=== PATIENT | male | born 1980 | race African-American/Black ===

== ENCOUNTER 2019-03-24 12:49 | Inpatient (IN) ==
[2019-03-24] MEDS ORDERED: ONDANSETRON 4 MG/2 ML VIAL IV PRN (15:00)
[2019-03-24] MEDS ORDERED: ACETAMINOPHEN 325 MG TABLET PO PRN (15:00)
[2019-03-24] MEDS ORDERED: GLUCAGON 1 MG VIAL IM PRN (15:00)
[2019-03-24] MEDS ORDERED: DEXTROSE 10% 250 ML BAG IV PRN (15:00)
[2019-03-24] MEDS ORDERED: DICYCLOMINE 10 MG CAPSULE PO PRN (15:01)
[2019-03-24] MEDS ORDERED: METHOCARBAMOL 750 MG TABLET PO PRN (15:01)
[2019-03-24] MEDS ORDERED: LORazepam 2 MG/1 ML VIAL IV PRN (15:01)
[2019-03-24] MEDS ORDERED: HydrOXYzine PAMOATE 25 MG CAPSULE PO PRN (15:01)
[2019-03-24 15:29] LABS: Basophils # 0.1 10*3/uL (0.0-0.2); Basophils % 1.5 % (0.0-0.8); Eosinophils # 0.2 10*3/uL (0.0-0.87); Eosinophils % 4.5 % (0.00-10.9); Hematocrit 39.9 VOL% (42.0-52.0); Hemoglobin 13.9 GM/DL (14.0-18.0); Immature Granulocytes % 0.2 %; Immature Granulocytes Absolute 0.01 #; Lymphocytes # 1.7 10*3/uL (1.4-4.0); Lymphocytes % 36.9 % (21.2-54.2); Mean Corpuscular HGB Conc 34.8 GM/DL (32-36); Mean Corpuscular Volume 90.7 FL (87-102); Mean Platelet Volume 9.9 FL (9.6-12.0); Monocytes % 11.7 % (1.7-12.7); Neutrophils % 45.2 % (38.7-73.9); Platelet Count 222 T/CUMM (130-400); White Blood Count 4.7 T/CUMM (4-12)
[2019-03-24 15:46] LABS: Osmolality,Calculated 265.1 MOS/KG (273-304)
[2019-03-24] MEDS: chlordiazePOXIDE 25 MG CAPSULE PO SCH ×2 (16:43→21:27)
[2019-03-24] MEDS: INSULIN LISPRO 100 UNIT/ML SUBCUT SCH ×2 (16:44→21:26)
[2019-03-24] MEDS ORDERED: THIAMINE INJ 100 MG, FOLIC ACID INJ 1 MG, MULTIVITAMIN INJ 10 ML in SODIUM CHLORIDE 0.9... IV ONE (17:00)
[2019-03-25 04:19] LABS: Basophils # 0.1 10*3/uL (0.0-0.2); Basophils % 1.1 % (0.0-0.8); Eosinophils # 0.3 10*3/uL (0.0-0.87); Eosinophils % 6.2 % (0.00-10.9); Hematocrit 41.6 VOL% (42.0-52.0); Immature Granulocytes % 0.2 %; Immature Granulocytes Absolute 0.01 #; Lymphocytes # 1.8 10*3/uL (1.4-4.0); Lymphocytes % 37.5 % (21.2-54.2); Mean Corpuscular HGB Conc 33.7 GM/DL (32-36); Mean Corpuscular Volume 91.6 FL (87-102); Mean Platelet Volume 10.6 FL (9.6-12.0); Monocytes % 11.1 % (1.7-12.7); Neutrophils % 43.9 % (38.7-73.9); Platelet Count 216 T/CUMM (130-400); Red Blood Count 4.54 MC/CUMM (3.8-5.5); Red Cell Distribution Width 14.8 % (9.3-17.3); White Blood Count 4.7 T/CUMM (4-12)
[2019-03-25 04:55] LABS: Calcium 8.6 MG/DL (8.5-10.1); Risk Ratio 4.2; Thyroid Stimulating Hormone 0.948 uIU/ml (0.358-3.74)
[2019-03-25] MEDS: chlordiazePOXIDE 25 MG CAPSULE PO SCH ×3 (04:59→15:40)
[2019-03-25] MEDS: INSULIN LISPRO 100 UNIT/ML SUBCUT SCH ×4 (07:20→21:17)
[2019-03-25] MEDS: PANTOPRAZOLE 40 MG TABLET PO SCH (09:15)
[2019-03-25 20:16] LABS: Barbiturates Screen,Urine Negative (Negative); Benzodiazepines Screen,Urine Positive (Negative); Cannabinoid Screen,Urine Negative (Negative); Opiate Screen,Urine Negative (Negative); Phencyclidine Screen,Urine Negative (Negative)
[2019-03-26] MEDS: chlordiazePOXIDE 25 MG CAPSULE PO SCH ×4 (00:52→23:33)
[2019-03-26 06:56] LABS: Basophils % 0.6 % (0.0-0.8); Eosinophils # 0.3 10*3/uL (0.0-0.87); Eosinophils % 5.3 % (0.00-10.9); Hematocrit 42.4 VOL% (42.0-52.0); Hemoglobin 14.1 GM/DL (14.0-18.0); Immature Granulocytes % 0.8 %; Immature Granulocytes Absolute 0.04 #; Lymphocytes # 1.4 10*3/uL (1.4-4.0); Lymphocytes % 26.1 % (21.2-54.2); Mean Corpuscular HGB Conc 33.3 GM/DL (32-36); Mean Platelet Volume 10.9 FL (9.6-12.0); Neutrophils % 57.2 % (38.7-73.9); Platelet Count 196 T/CUMM (130-400); Red Blood Count 4.56 MC/CUMM (3.8-5.5); Red Cell Distribution Width 14.6 % (9.3-17.3); White Blood Count 5.3 T/CUMM (4-12)
[2019-03-26 07:20] LABS: Calcium 8.9 MG/DL (8.5-10.1); Osmolality,Calculated 288.7 MOS/KG (273-304)
[2019-03-26] MEDS: PANTOPRAZOLE 40 MG TABLET PO SCH (09:12)
[2019-03-26] MEDS: INSULIN LISPRO 100 UNIT/ML SUBCUT SCH ×4 (09:48→21:25)
[2019-03-27 08:20] VITALS: BP 110/79
[2019-03-27] MEDS: chlordiazePOXIDE 25 MG CAPSULE PO SCH (08:41)
[2019-03-27] MEDS: INSULIN LISPRO 100 UNIT/ML SUBCUT SCH ×2 (08:41→10:56)
[2019-03-27] MEDS: PANTOPRAZOLE 40 MG TABLET PO SCH (08:41)
[2019-03-27] MEDS ORDERED: INSULIN NPH 100 UNIT/ML SUBCUT SCH (08:45)
== END 2019-03-27 12:10 | disposition home or self-care (01) | DRG 772 ==
LOC: N.4E 14:11
PROVIDERS: ADMIT Internal Medicine; ATTEND Internal Medicine

== ENCOUNTER 2019-05-06 10:35 | Inpatient (IN) ==
[2019-05-06] MEDS ORDERED: HydrOXYzine PAMOATE 25 MG CAPSULE PO PRN (11:37)
[2019-05-06] MEDS ORDERED: DICYCLOMINE 10 MG CAPSULE PO PRN (11:37)
[2019-05-06] MEDS ORDERED: ACETAMINOPHEN 500 MG TABLET PO PRN (11:37)
[2019-05-06] MEDS ORDERED: cloNIDine 0.1 MG TABLET PO PRN (11:37)
[2019-05-06 12:03] LABS: Basophils # 0.1 10*3/uL (0.0-0.2); Basophils % 1.7 % (0.0-0.8); Eosinophils # 0.3 10*3/uL (0.0-0.87); Eosinophils % 5.7 % (0.00-10.9); Hematocrit 41.9 VOL% (42.0-52.0); Hemoglobin 14.1 GM/DL (14.0-18.0); Immature Granulocytes % 0.2 %; Immature Granulocytes Absolute 0.01 #; Lymphocytes # 1.8 10*3/uL (1.4-4.0); Mean Corpuscular HGB Conc 33.7 GM/DL (32-36); Mean Corpuscular Volume 92.5 FL (87-102); Mean Platelet Volume 10.5 FL (9.6-12.0); Monocytes % 10.5 % (1.7-12.7); Neutrophils % 46.9 % (38.7-73.9); Platelet Count 284 T/CUMM (130-400); Red Blood Count 4.53 MC/CUMM (3.8-5.5); White Blood Count 5.2 T/CUMM (4-12)
[2019-05-06] MEDS: chlordiazePOXIDE 25 MG CAPSULE PO SCH ×2 (12:09→17:18)
[2019-05-06 12:12] LABS: PT Patient Result 10.7 SECS
[2019-05-06 12:30] LABS: Albumin 3.9 G/DL (3.4-5.0); Bilirubin,Total 0.6 MG/DL (0.2-1.0); Total Protein 7.6 G/DL (6.4-8.3)
[2019-05-06] MEDS ORDERED: THIAMINE INJ 100 MG, FOLIC ACID INJ 1 MG, MULTIVITAMIN INJ 10 ML in SODIUM CHLORIDE 0.9... IV ONE (12:30)
[2019-05-06 15:12] LABS: Apearance,Urine CLEAR (Clear); Bilirubin,Urine Negative (Negative); Blood, Urine Negative (Negative); Glucose,Urine (UA) Negative (Negative); Ketones,Urine Negative (Negative); Nitrite,Urine Negative (Negative); Protein,Urine Negative; RBC,Urine 1 /HPF (0-4); Squamous Epithelial Cell,Urine Occasional /HPF (0-10); Urine Color Yellow (Yellow); Urine Specific Gravity 1.013 (1.001-1.035); Urine Urobilinogen < 2.0 EU/DL (0.2-1.0); WBC,Urine <1 /HPF (0-6)
[2019-05-06 15:18] LABS: Barbiturates Screen,Urine Negative (Negative); Benzodiazepines Screen,Urine Negative (Negative); Cannabinoid Screen,Urine Negative (Negative); Opiate Screen,Urine Positive (Negative); Phencyclidine Screen,Urine Negative (Negative)
[2019-05-06] MEDS ORDERED: GLUCAGON 1 MG VIAL IM PRN (15:20)
[2019-05-06] MEDS ORDERED: DEXTROSE 10% 250 ML BAG IV PRN (15:20)
[2019-05-06] MEDS ORDERED: INSULIN REGULAR 100 UNIT/ML SUBCUT SCH (16:30)
[2019-05-06] MEDS: INSULIN REGULAR 100 UNIT/ML SUBCUT SCH ×2 (17:09→20:49)
[2019-05-06] MEDS: METHOCARBAMOL 750 MG TABLET PO PRN (23:40)
[2019-05-07] MEDS: chlordiazePOXIDE 25 MG CAPSULE PO SCH ×4 (00:15→21:09)
[2019-05-07 06:10] LABS: Osmolality,Calculated 287.4 MOS/KG (273-304)
[2019-05-07] MEDS: INSULIN REGULAR 100 UNIT/ML SUBCUT SCH ×4 (09:22→21:08)
[2019-05-07] MEDS: FOLIC ACID 1 MG TABLET PO SCH (09:22)
[2019-05-07] MEDS: NICOTINE 21 MG/24 HR PATCH TRANSDERM SCH (09:22)
[2019-05-07] MEDS: THIAMINE 100 MG TABLET PO SCH (09:22)
[2019-05-07] MEDS: METHOCARBAMOL 750 MG TABLET PO PRN (16:23)
[2019-05-08] MEDS: LORazepam 2 MG/1 ML VIAL IV PRN ×2 (00:25→12:17)
[2019-05-08] MEDS: chlordiazePOXIDE 25 MG CAPSULE PO SCH ×3 (04:45→21:52)
[2019-05-08] MEDS: INSULIN REGULAR 100 UNIT/ML SUBCUT SCH ×4 (08:15→21:52)
[2019-05-08] MEDS: THIAMINE 100 MG TABLET PO SCH (08:15)
[2019-05-08] MEDS: FOLIC ACID 1 MG TABLET PO SCH (08:15)
[2019-05-08] MEDS: METHOCARBAMOL 750 MG TABLET PO PRN (08:25)
[2019-05-08] MEDS: NICOTINE 21 MG/24 HR PATCH TRANSDERM SCH (09:42)
[2019-05-08] MEDS: metFORMIN 500 MG TABLET PO SCH (12:17)
[2019-05-09] MEDS: chlordiazePOXIDE 25 MG CAPSULE PO SCH (04:30)
[2019-05-09] MEDS: THIAMINE 100 MG TABLET PO SCH (09:31)
[2019-05-09] MEDS: INSULIN REGULAR 100 UNIT/ML SUBCUT SCH ×4 (09:31→20:31)
[2019-05-09] MEDS: FOLIC ACID 1 MG TABLET PO SCH (09:31)
[2019-05-09] MEDS: metFORMIN 500 MG TABLET PO SCH (09:31)
[2019-05-09] MEDS: NICOTINE 21 MG/24 HR PATCH TRANSDERM SCH (12:01)
[2019-05-10] MEDS: metFORMIN 500 MG TABLET PO SCH (10:05)
[2019-05-10] MEDS: FOLIC ACID 1 MG TABLET PO SCH (10:05)
[2019-05-10] MEDS: INSULIN REGULAR 100 UNIT/ML SUBCUT SCH ×2 (10:05→12:15)
[2019-05-10] MEDS: NICOTINE 21 MG/24 HR PATCH TRANSDERM SCH ×2 (10:05→10:07)
[2019-05-10] MEDS: THIAMINE 100 MG TABLET PO SCH (10:05)
[2019-05-10 15:47] VITALS: BP 104/75
== END 2019-05-10 16:00 | disposition home or self-care (01) | DRG 772 ==
LOC: N.4E 10:52 → SUATTDRO 10:52
PROVIDERS: ATTEND Family Medicine